=== PATIENT | female | born 1995 | race Caucasian/White ===

== ENCOUNTER 2017-10-02 14:53 | Emergency (ER) | payer OTHER ==
[~2017-10-02] VITALS: Ht 170.2 cm; Wt 66.8 kg
[2017-10-02] MEDS ORDERED: SINGULAIR 110 MG/TAB PO (15:06)
[2017-10-02] MEDS ORDERED: LESSINA 28 0.021 TAB PO (15:06)
[2017-10-02 15:07] VITALS: BP 128/83; TEMP 98.3
[2017-10-02 15:29] LABS: BASO % 0.2 % (0.0-2.0); GRAN # 4.9 (1.4-6.5); GRAN % 75.1 % (42.2-75.2); HEMATOCRIT 39.5 % (37.0-47.0); HEMOGLOBIN 13.2 g/dl (12.5-16.0); LYMPH # 1.3 (1.2-3.4); LYMPH % 20.5 % (20.0-51.0); MEAN CELL VOLUME 87 fl (80.0-100.0); MEAN CORPUSCULAR HEMOGLOBIN 29 pg (27.0-31.0); MEAN CORPUSCULAR HGB CONC 33 g/dl (33.0-37.0); MEAN PLATELET VOLUME 9.7 fl (7.4-10.4); MONO # 0.3 (0.1-0.6); PLATELET COUNT 311 K/mm3 (130-400); RED BLOOD COUNT 4.53 M/mm3 (4.10-5.30); REDCELL DISTRIBUTION WIDTH-CV 12.2 % (11.5-14.5)
[2017-10-02 15:39] LABS: ALBUMIN 4.6 gm/dL (3.5-5.0); BILIRUBIN,TOTAL 0.2 mg/dL (0.0-1.0); CALCIUM 9.9 mg/dL (8.4-10.2); CREATININE, serum 0.5 mg/dL (0.52-1.25); POTASSIUM 3.8 mmol/L (3.4-5.0); TOTAL PROTEIN 8.6 gm/dL (6.4-8.2)
[2017-10-02 16:09] LABS: TSH w REFLEX 0.334 uIU/mL (0.465-4.680)
[2017-10-02 17:03] VITALS: PULSE 94
== END 2017-10-02 17:03 | disposition home or self-care (01) ==
LOC: COL.ER 14:53
PROVIDERS: Emergency Medicine
DX: R22.2 Localized swelling, mass and lump, trunk (principal); J45.909 Unspecified asthma, uncomplicated

== ENCOUNTER 2019-04-26 21:33 | Emergency (ER) | payer OTHER ==
[~2019-04-26] VITALS: Ht 170.2 cm; Wt 75.0 kg
[~2019-04-26 21:33] MED LIST: LESSINA 28 0.021 TAB PO; SINGULAIR 110 MG/TAB PO
[2019-04-26 22:13] LABS: COLLECTION METHOD CLEAN CATCH
[2019-04-26 22:16] LABS: BASO % 0.3 % (0.0-2.0); EOS % 0.3 % (0-4.0); GRAN # 4.9 (1.4-6.5); GRAN % 72.6 % (42.2-75.2); HEMATOCRIT 42.2 % (37.0-47.0); HEMOGLOBIN 13.9 g/dl (12.5-16.0); LYMPH # 1.3 (1.2-3.4); LYMPH % 19.8 % (20.0-51.0); MEAN CELL VOLUME 88 fl (80.0-100.0); MEAN CORPUSCULAR HEMOGLOBIN 29 pg (27.0-31.0); MEAN CORPUSCULAR HGB CONC 33 g/dl (33.0-37.0); MEAN PLATELET VOLUME 9.8 fl (7.4-10.4); MONO # 0.5 (0.1-0.6); MONO % 6.7 % (1.7-9.3); PLATELET COUNT 252 K/mm3 (130-400); RED BLOOD COUNT 4.79 M/mm3 (4.10-5.30); REDCELL DISTRIBUTION WIDTH-CV 12.5 % (11.5-14.5)
[2019-04-26 22:20] LABS: PH 6 (5-8); SQUAMOUS EPITHELIAL 0-2 /hpf; URINE APPEARANCE Clear; URINE BACTERIA None Seen /hpf; URINE BILIRUBIN Negative (NEGATIVE); URINE BLOOD Negative (NEGATIVE); URINE COLOR Straw; URINE GLUCOSE Negative (NEGATIVE); URINE KETONE Negative (NEGATIVE); URINE LEUKOCYTE ESTERASE Negative (NEGATIVE); URINE NITRATE Negative (NEGATIVE); URINE PROTEIN(semi-quant) Negative (NEGATIVE); URINE RBC 0-2 /hpf; URINE UROBILINOGEN Negative (NEGATIVE)
[2019-04-26 22:31] LABS: ALBUMIN 4.7 gm/dL (3.5-5.0); BILIRUBIN,TOTAL 0.2 mg/dL (0.0-1.0); C-REACTIVE PROTEIN 2.2 mg/dL (0.0-0.9); CALCIUM 9.6 mg/dL (8.4-10.2); CREATININE, serum 0.57 (0.52-1.25); POTASSIUM 3.6 mmol/L (3.4-5.0)
[2019-04-27] MEDS ORDERED: ZOFRAN ODT8 MG PO (00:02)
[2019-04-27 00:27] VITALS: BP 122/62; PULSE 101; TEMP 98.1
== END 2019-04-27 00:28 | disposition home or self-care (01) ==
LOC: COL.ER 21:33
PROVIDERS: Emergency Medicine
DX: A08.4 Viral intestinal infection, unspecified (principal); J45.909 Unspecified asthma, uncomplicated; Z85.05 Personal history of malignant neoplasm of liver
CPT/HCPCS: J1885; J2405; J7030; Q9967

== ENCOUNTER → 2019-07-03 | Outpatient (CLI) | payer OTHER ==
[~2019-07-03] MED LIST changes: +ZOFRAN ODT8 MG PO
== END ==
LOC: COL.RAD 07:12
DX: K76.9 Liver disease, unspecified (principal); Z90.49 Acquired absence of other specified parts of digestive tract; Z85.05 Personal history of malignant neoplasm of liver
CPT/HCPCS: Q9967

== ENCOUNTER → 2019-11-07 | Outpatient (CLI) | payer OTHER | LOC: COL.RAD 08:26 | DX: R16.0 Hepatomegaly, not elsewhere classified (principal); Z90.49 Acquired absence of other specified parts of digestive tract | CPT/HCPCS: Q9967 ==

== ENCOUNTER → 2020-01-10 | Outpatient (CLI) | payer OTHER | LOC: ZCOL.LAB 16:15 | DX: J02.9 Acute pharyngitis, unspecified (principal); M79.10 Myalgia, unspecified site ==

== ENCOUNTER → 2020-09-04 | Outpatient (CLI) | payer OTHER | LOC: COL.RAD | DX: R16.0 Hepatomegaly, not elsewhere classified (principal); Z90.89 Acquired absence of other organs; Z96.89 Presence of other specified functional implants | CPT/HCPCS: Q9967 ==

== ENCOUNTER 2020-10-16 11:00 | Emergency (ER) | payer OTHER ==
[~2020-10-16] VITALS: Ht 170.2 cm; Wt 84.1 kg
[2020-10-16 11:03] VITALS: BP 146/94; TEMP 98.1
[2020-10-16 12:52] VITALS: PULSE 104
== END 2020-10-16 12:52 | disposition home or self-care (01) ==
LOC: COL.ER 11:00
DX: J45.901 Unspecified asthma with (acute) exacerbation (principal)
CPT/HCPCS: J1100

== ENCOUNTER → 2022-03-17 | Outpatient (CLI) | payer BC, OTHER | LOC: COL.RAD 14:00 | DX: R16.0 Hepatomegaly, not elsewhere classified (principal); R10.11 Right upper quadrant pain; Z85.05 Personal history of malignant neoplasm of liver ==

== ENCOUNTER → 2022-08-03 | Outpatient (CLI) | payer BC | LOC: COL.RAD 07:18 | DX: R16.0 Hepatomegaly, not elsewhere classified (principal) | CPT/HCPCS: A9575 ==